=== PATIENT | female | born 2000 | race Caucasian/White ===

== ENCOUNTER 2019-03-31 13:55 | Emergency (ER) | payer OTHER ==
[2019-03-31 16:43] LABS: Urine Appearance Cloudy; Urine Bacteria 3+ (Absent); Urine Bilirubin Negative (Negative); Urine Blood 1+ (Negative); Urine Color Amber; Urine Glucose Negative (Negative); Urine Ketones 2+ (Negative); Urine Nitrite Positive (Negative); Urine Protein Negative (Negative); Urine Red Blood Cell 1+(3-5/hpf) (Absent); Urine Specific Gravity 1.029 (1.010-1.030); Urine Squamous Epithelial Cell Present (Absent); Urine Urobilinogen Negative (Negative); Urine White Blood Cell 2+(11-20/hpf) (Absent)
[2019-03-31 17:02] LABS: ABS Lymphocytes 2.6 10^3/ul (1.0-4.8); ABS Monocytes 0.7 10^3/ul (0-0.8); ABS Neutrophils 5.4 10^3/ul (1.5-7.7); Eosinophil % 0.3 %; Hematocrit 38 % (35-47); Hemoglobin 11.8 g/dL (12.0-16.0); Lymphocyte % 29.3 %; Mean Corpuscular HGB Conc 31 g/dL (31-36); Mean Corpuscular Hemoglobin 20 pg (27-31); Mean Corpuscular Volume 64 fL (80-97); Mean Platelet Volume 9.9 fL (7.4-10.4); Nucleated Red Blood Cells % 0.3; Platelet Count 296 10^3/uL (150-450); Red Blood Count 5.88 10^6 /uL (3.70-4.87); Red Cell Distribution Width 16 % (10-15); White Blood Count 8.7 10^3/uL (3.5-10.8)
[2019-03-31] MEDS ORDERED: NS 0.9% 1000 ML** 1,000 ML IV ONE (17:05)
[2019-03-31 17:11] LABS: ALT 9 U/L (7-52); AST 19 U/L (13-39); Albumin 4.5 g/dL (3.2-5.2); Albumin/Globulin Ratio 1.6 (1-3); Alkaline Phosphatase 110 U/L (34-104); Anion Gap 7 mmol/L (2-11); BUN/Creatinine Ratio 16.7 (8-20); Blood Urea Nitrogen 15 mg/dL (6-24); CO2 Carbon Dioxide 25 mmol/L (22-32); Calcium 9.8 mg/dL (8.6-10.3); Chloride 104 mmol/L (101-111); EGFR African American 97.6 (>60); EGFR Non-African American 80.7 (>60); Globulin 2.8 g/dL (2-4); Glucose 141 mg/dL (70-100); Potassium 3.8 mmol/L (3.5-5.0); Sodium 136 mmol/L (135-145); Total Protein 7.3 g/dL (6.4-8.9)
[2019-03-31 17:17] LABS: HCG Pregnancy < 0.60 mIU/mL
--- NOTE | 2019-03-31 17:19 | ED ---
Abdominal Pain/Female - HPI Summary HPI Summary: 18 year old F presenting to [facility] accompanied by friends complains of intermittent suprapubic abdominal pain, nausea/vomiting, dizziness x4 days. States she hasn't been eating in last 4 days. No diarrhea, back pain, vaginal discharge. Not currently having pain. The patient rates the pain 0/10 in severity. Symptoms aggravated by nothing. Symptoms alleviated by nothing. Patient denies fever, chills, erythema of eyes, sore throat, chest pain, shortness of breath, cough, dysuria, hematuria, myalgia, edema, rash. Has regular periods. LNMP 2 weeks ago. No pertinent PMHx. No surgical hx. Admits to drinking alcohol and using e-cigarettes. No recent tick exposure. - History of Current Complaint Chief Complaint: EDGeneral Stated Complaint: VOMITING PER PT Time Seen by Provider: 03/31/19 17:05 Hx Obtained From: Patient Hx Last Menstrual Period: 03/17/19 Onset/Duration: Lasting Days - 4, Still Present Timing: Intermittent Episode Lasting Severity Currently: None Pain Intensity: 0 Pain Scale Used: 0-10 Numeric Location: Suprapubic Radiates: No Aggravating Factor(s): Nothing Alleviating Factor(s): Nothing Associated Signs and Symptoms: Positive: Negative - diarrhea, back pain, vaginal discharge, fever, chills, erythema of eyes, sore throat, chest pain, shortness of breath, cough, dysuria, hematuria, myalgia, edema, rash. Allergies/Adverse Reactions: Allergies Allergy/AdvReac Type Severity Reaction Status Date / Time No Known Allergies Allergy Verified 03/31/19 14:02 PMH/Surg Hx/FS Hx/Imm Hx Endocrine/Hematology History: Denies: Hx Diabetes Cardiovascular History: Denies: Hx Hypertension Respiratory History: Denies: Hx Asthma - Surgical History Surgical History: None Infectious Disease History: No Infectious Disease History: Denies: Traveled Outside the [place] in Last 30 Days - Family History Known Family History: Positive: Other - NEG: cancer Negative: Cardiac Disease, Hypertension, Diabetes - Social History Alcohol Use: Occasionally Substance Use Type: Reports: None Hx Tobacco Use: Yes Smoking Status (MU): Current Some Day Smoker Type: eCigarettes Review of Systems Negative: Fever, Chills Negative: Erythema Negative: Sore Throat Negative: Chest Pain Negative: Shortness Of Breath, Cough Positive: Abdominal Pain, Vomiting, Nausea. Negative: Diarrhea Negative: dysuria, discharge, flank pain Musculoskeletal: Negative - back pain Negative: Myalgia, Edema Negative: Rash Neurological: Other - Dizziness All Other Systems Reviewed And Are Negative: Yes Physical Exam - Summary Physical Exam Summary: Constitutional: Well-developed, Well-nourished, Alert. (-) Distressed Skin: Warm, Dry HENT: Normocephalic; Atraumatic Eyes: Conjunctiva normal Neck: Musculoskeletal ROM normal neck. (-) JVD, (-) Stridor, (-) Tracheal deviation Cardio: Rhythm regular, rate normal, Heart sounds normal; Intact distal pulses; The pedal pulses are 2+ and symmetric. Radial pulses are 2+ and symmetric. (-) Murmur Pulmonary/Chest wall: Effort normal. (-) Respiratory distress, (-) Wheezes, (-) Rales Abd: Soft, suprapubic tenderness, (-) Distension, (-) Guarding, (-) Rebound Musculoskeletal: (-) Edema Lymph: (-) Cervical adenopathy Neuro: Alert, Oriented x3 Psych: Mood and affect Normal Triage Information Reviewed: Yes Vital Signs On Initial Exam: Initial Vitals Temp Pulse Resp BP Pulse Ox 98.4 F 62 17 125/85 98 03/31/19 13:56 03/31/19 13:56 03/31/19 13:56 03/31/19 13:56 03/31/19 13:56 Vital Signs Reviewed: Yes Procedures - Sedation Patient Received Moderate/Deep Sedation with Procedure: No Diagnostics - Vital Signs Vital Signs Temp Pulse Resp BP Pulse Ox 03/31/19 16:22 98.5 F 67 17 132/67 99 03/31/19 13:56 98.4 F 62 17 125/85 98 - Laboratory Lab Results: Lab Results 03/31/19 03/31/19 03/31/19 Range/Units 16:30 16:42 16:42 WBC 8.7 (3.5-10.8) 10^3/uL RBC 5.88 H (3.70-4.87) 10^6 /uL Hgb 11.8 L (12.0-16.0) g/dL Hct 38 (35-47) % MCV 64 L (80-97) fL MCH 20 L (27-31) pg MCHC 31 (31-36) g/dL RDW 16 H (10-15) % Plt Count 296 (150-450) 10^3/uL MPV 9.9 (7.4-10.4) fL Neut % (Auto) 61.6 % Lymph % (Auto) 29.3 % [place] % (Auto) 8.4 % Eos % (Auto) 0.3 % Baso % (Auto) 0.4 % Absolute Neuts (auto) 5.4 (1.5-7.7) 10^3/ul Absolute Lymphs (auto) 2.6 (1.0-4.8) 10^3/ul Absolute Monos (auto) 0.7 (0-0.8) 10^3/ul Absolute Eos (auto) 0.0 (0-0.6) 10^3/ul Absolute Basos (auto) 0.0 (0-0.2) 10^3/ul Absolute Nucleated RBC 0.0 10^3/ul Nucleated RBC % 0.3 Sodium 136 (135-145) mmol/L Potassium 3.8 (3.5-5.0) mmol/L Chloride 104 (101-111) mmol/L Carbon Dioxide 25 (22-32) mmol/L Anion Gap 7 (2-11) mmol/L BUN 15 (6-24) mg/dL Creatinine 0.90 (0.51-0.95) mg/dL Est GFR ( Amer) 97.6 (>60) Est GFR (Non-Af Amer) 80.7 (>60) BUN/Creatinine Ratio 16.7 (8-20) Glucose 141 H (70-100) mg/dL Calcium 9.8 (8.6-10.3) mg/dL Total Bilirubin 1.10 H (0.2-1.0) mg/dL AST 19 (13-39) U/L ALT 9 (7-52) U/L Alkaline Phosphatase 110 H (34-104) U/L Total Protein 7.3 (6.4-8.9) g/dL Albumin 4.5 (3.2-5.2) g/dL Globulin 2.8 (2-4) g/dL Albumin/Globulin Ratio 1.6 (1-3) Beta HCG, Quant Pending Urine Color [place] Urine Appearance Cloudy Urine pH 5.0 (5-9) Ur Specific [place] 1.029 (1.010-1.030) Urine Protein Negative (Negative) Urine Ketones 2+ A (Negative) Urine Blood 1+ A (Negative) Urine Nitrate Positive A (Negative) Urine Bilirubin Negative (Negative) Urine Urobilinogen Negative (Negative) Ur Leukocyte Esterase 1+ A (Negative) Urine WBC (Auto) 2+(11-20/hpf) A (Absent) Urine RBC (Auto) 1+(3-5/hpf) A (Absent) Ur Squamous Epith Cells Present A (Absent) Urine Bacteria 3+ A (Absent) Urine Glucose Negative (Negative) Result Diagrams: 03/31/19 16:42 03/31/19 16:42 Lab Statement: Any lab studies that have been ordered have been reviewed, and results considered in the medical decision making process. Re-Evaluation - Re-Evaluation First Eval Re-Evaluation Time: 18:52 Comment: agrees to d/c Abdominal Pain Fem Course/Dx - Course Course Of Treatment: 18 year old F complains of intermittent lower suprapubic pain, nausea/vomiting, dizziness x4 days. Physical exam: suprapubic tenderness. Bloodwork results with no significant abnormalities except for RBC 5.88, Hgb 11.8, MCV 64, MCH 20, RDW 16, glucose 141, total bilirubin 1.10, alkaline phosphatase 110. Urinalysis results with no significant abnormalities except for ketones 2+, blood 1+, nitrate, leukocyte esterase 1+, WBC 2+, RBC 1+ , squamous epithelial cells, bacteria 3+. In the ED course, the patient was given Zofran 4 mg PO and normal saline fluids 1 L IV. Patient will be discharged home with prescription for Zofran 4 mg PO and follow up from [facility] in 2-3 days. Patient was instructed to return to Emergency Department for new or worsening symptoms. Patient understands and is agreeable to this plan. - Diagnoses Provider Diagnoses: UTI (urinary tract infection), Vomiting Discharge ED - Sign-Out/Discharge Documenting (check all that apply): Patient Departure - Discharge - Discharge Plan Condition: Stable Disposition: HOME Prescriptions: Ondansetron ODT TAB* [Zofran 4 MG Odt TAB*] 4 mg PO Q8H PRN #10 tab.odt PRN Reason: Nausea/Vomiting Sulfamethox/Trimethoprim DS* [Bactrim DS 800/160 TAB*] 1 tab PO BID #10 tab Patient Education Materials: Urinary Tract Infection in Women (ED), Acute Nausea and Vomiting (ED) Referrals: [facility] - Vikas AARON [Primary Care Provider] - 2 Days Additional Instructions: Follow up with [facility] in 2-3 days. Return to the Emergency Department with new or worsening symptoms. - Attestation Statements Document Initiated by Scribe: Yes Documenting Scribe: Grace Ramirez Provider For Whom Scribe is Documenting (Include Credential): Eric Zarate MD Scribe Attestation: Grace Lindsay, scribed for Eric Zarate MD on 03/31/19 at 1855. Status of Scribe Document: Ready
[2019-03-31] MEDS ORDERED: Ondansetron ODT TAB* 4 MG PO ONE (17:21)
[2019-03-31 18:46] VITALS: BP 104/49
[2019-03-31] MEDS ORDERED: O ndansetron ODT 4MG 5TAB PRPK 4 MG PAK PO ONE (18:50)
--- NOTE | 2019-04-03 10:27 | ED ---
Imaging and Labs Follow Up Follow Up Type: Labs/Cultures Labs/Culture Result: Urine culture growing >100k Patient Communication/Plan: Pt. placed on Bactrim for UTI. Urine culture growing e coli resistant to bactrim. Attempted to call pt. today at 1027 without answer. Message left. Rx for keflex sent to pharmacy based on culture. Will try to reach again tomorrow. 04/04/19, 1550: Attempted to call pt. again today with no answer. Will send letter. Provider Diagnoses: UTI (urinary tract infection), Vomiting
== END 2019-03-31 19:17 | disposition home or self-care (01) ==
LOC: ED 13:55
DX: N39.0 Urinary tract infection, site not specified (principal); R11.10 Vomiting, unspecified; F17.290 Nicotine dependence, other tobacco product, uncomplicated
CPT/HCPCS: 36415; 80053; 81003; 81015; 84702; 85025; 87077; 87086; 87186; 96360; 99282; A9270-GY